=== PATIENT | female | born 1955 | race African-American/Black ===

== ENCOUNTER 2017-05-15 06:31 | Day surgery (SDC) | payer MEDICARE, MEDICAID ==
[~2017-05-15] VITALS: Ht 162.6 cm; Wt 89.8 kg
[2017-05-15] MEDS ORDERED: OXYC30TA89 PO (07:26)
[2017-05-15] MEDS ORDERED: HYDR25TA PO (07:26)
[2017-05-15] MEDS ORDERED: DILT120C11 MT (07:26)
[2017-05-15] MEDS ORDERED: DIAZ-56 PO (07:26)
[2017-05-15] MEDS ORDERED: HALO5TAB PO (07:26)
[2017-05-15] MEDS ORDERED: POTA20TA75 PO (07:26)
[2017-05-15] MEDS ORDERED: ALBU90AE IH (07:26)
[2017-05-15] MEDS ORDERED: TRAM50TA3 PO (07:26)
[2017-05-15] MEDS ORDERED: ASPI-1159 PO (07:26)
[2017-05-15] MEDS ORDERED: DIVA500T51 PO (07:26)
[2017-05-15] MEDS ORDERED: HYDR-523 PO (07:26)
[2017-05-15] MEDS ORDERED: NITR0.4T3 SL (07:26)
[2017-05-15] MEDS ORDERED: LIDOCAINE HCL 1% 20ML VIAL (Pyxis) INJ ONE (07:45)
[2017-05-15] MEDS ORDERED: IOHEXOL-300 100 ML BOTTLE ONE (07:45)
[2017-05-15] MEDS ORDERED: MIDAZOLAM HCL 2 MG/2 ML VIAL ONE ×2 (08:21→09:00)
[2017-05-15] MEDS ORDERED: FENTANYL CITRATE/PF 50MCG/ML 2ML VIAL ONE (08:22)
[2017-05-15] MEDS ORDERED: HEPARIN SODIUM 1,000 UNIT/1ML VIAL IV ONE (08:27)
[2017-05-15] MEDS ORDERED: ACETAMINOPHEN 325MG TABLET PO PRN (09:30)
== END 2017-05-15 12:20 | disposition home or self-care (01) ==
LOC: CCL 06:31
PROVIDERS: ATTEND Specialist
DX: I25.110 Atherosclerotic heart disease of native coronary artery with unstable angina pectoris (principal); I45.10 Unspecified right bundle-branch block; J44.9 Chronic obstructive pulmonary disease, unspecified; I10 Essential (primary) hypertension; H40.9 Unspecified glaucoma; F41.9 Anxiety disorder, unspecified; E88.81 Metabolic syndrome and other insulin resistance; E78.5 Hyperlipidemia, unspecified; B19.20 Unspecified viral hepatitis C without hepatic coma; Z79.82 Long term (current) use of aspirin; Z82.49 Family history of ischemic heart disease and other diseases of the circulatory system; Z88.0 Allergy status to penicillin
CPT/HCPCS: 93458; 99152; 99153; C1760; C1769; C1887; C1893; J1644; J2250; J3010; J3490; Q9967

== ENCOUNTER 2020-03-13 07:24 | Emergency (ER) | payer MEDICARE, MEDICAID ==
[~2020-03-13] VITALS: Ht 160 cm; Wt 87.0 kg
[~2020-03-13 07:24] MED LIST: ALBU90AE IH; ASPI-1497 PO; DIAZ5TAB PO; DILT120C11 MT; DIVA500T51 PO; HALO5TAB PO; HYDR-523 PO; HYDR25TA PO; NITR0.4T49 SL; OXYC30TA89 PO; POTA20TA12 PO; TRAM50TA3 PO
[2020-03-13 08:53] VITALS: BP 125/81
== END 2020-03-13 08:56 | disposition home or self-care (01) ==
LOC: ER 07:34
DX: H40.9 Unspecified glaucoma (principal); G89.29 Other chronic pain; I10 Essential (primary) hypertension; Z90.49 Acquired absence of other specified parts of digestive tract; Z79.82 Long term (current) use of aspirin; Z79.899 Other long term (current) drug therapy; Z88.0 Allergy status to penicillin; Z88.8 Allergy status to other drugs, medicaments and biological substances
CPT/HCPCS: 99283